=== PATIENT | female | born 1990 | race Caucasian/White ===

== ENCOUNTER 2017-09-13 23:05 | Inpatient (IN) | payer MEDICAID ==
[2017-09-14 01:03] LABS: RUPTURE FETAL MEMBRANES NEGATIVE (NEGATIVE)
[2017-09-14] MEDS ORDERED: OXYCODONE/ASPIRIN (4.88/325) TAB PO (01:30)
[2017-09-14] MEDS ORDERED: LIDOCAINE 1% (MPF) 30 ML INJ INJ (01:30)
[2017-09-14] MEDS ORDERED: METHYLERGONOVINE 0.2 MG INJ IM (01:30)
[2017-09-14] MEDS ORDERED: MISOPROSTOL 200 MCG TAB PR (01:30)
[2017-09-14] MEDS ORDERED: IBUPROFEN 600 MG TAB PO (01:30)
[2017-09-14] MEDS ORDERED: BUTORPHANOL 2 MG INJ IV ×2 (01:30)
[2017-09-14] MEDS ORDERED: CARBOPROST 250 MCG INJ IM (01:30)
[2017-09-14] MEDS ORDERED: OXYTOCIN 30 UNITS/LR 500 ML IV ×3 (01:30)
[2017-09-14] MEDS: LACTATED RINGER'S 1,000 ML IV ×4 (01:59→23:49)
[2017-09-14 02:22] LABS: ADD MAN DIFF? NO; BASOPHILS % 0.5 % (0.0-2.0); EOSINOPHILS # 0.3 10^3/ul (0.0-0.5); HEMATOCRIT 32.1 % (37.0-47.0); HEMOGLOBIN 11.3 g/dl (12.0-16.0); LYMPHOCYTES # 2.3 10^3/ul (0.8-2.9); LYMPHOCYTES % 27.1 % (15.0-51.0); MEAN CORPUSCULAR HEMOGLOBIN 31.9 pg (29.0-33.0); MEAN CORPUSCULAR HGB CONC 35.2 g/dl (32.0-37.0); MEAN CORPUSCULAR VOLUME 90.7 fl (82.0-101.0); MEAN PLATELET VOLUME 10.9 fl (7.4-10.4); MONOCYTE # 0.4 10^3/ul (0.3-0.9); MONOCYTES % 5.3 % (0.0-11.0); NEUTROPHIL # 5.2 10^3/ul (1.6-7.5); NEUTROPHILS % 61.9 % (39.0-77.0); PLATELET COUNT 183 10^3/UL (140-415); RED BLOOD COUNT 3.54 10^6/ul (4.20-5.40); RED CELL DISTRIBUTION WIDTH 13.1 % (11.5-14.5)
[2017-09-14 02:22] LABS: WHITE BLOOD COUNT 8.3 10^3/ul (4.8-10.8)
[2017-09-14 02:41] LABS: INR 0.88; PT RATIO 0.9
[2017-09-14 02:42] LABS: PARTIAL THROMBOPLASTIN TIME 28.1 Sec (25.0-35.0)
[2017-09-14 03:14] LABS: HEPATITIS B SURFACE ANTIGEN NEGATIVE (NEGATIVE)
[2017-09-14] MEDS: DINOPROSTONE 10 MG VAG SUPP VAG (03:26)
[2017-09-14 15:08] LABS: RAPID PLASMA REAGIN NONREACTIVE (NR)
[2017-09-14] MEDS: OXYTOCIN 30 UNITS/LR 500 ML IV (19:49)
[2017-09-15] MEDS: LACTATED RINGER'S 1,000 ML IV (05:42)
[2017-09-15] MEDS ORDERED: CEFAZOLIN 2 GM/50 ML (PMX) 50 ML IVPB (06:30)
== END 2017-09-15 15:33 | disposition home or self-care (01) | DRG 780 ==
LOC: OBT 23:05 → L-D 23:06
PROVIDERS: Obstetrics & Gynecology
DX: O47.1 False labor at or after 37 completed weeks of gestation (principal); Z3A.38 38 weeks gestation of pregnancy
CPT/HCPCS: 36415; 76815; 76818; 84112; 85025; 85610; 85730; 86592; 86850; 86900; 86901; 87340

== ENCOUNTER 2017-09-18 11:55 | Outpatient (CLI) | payer MEDICAID | END 2017-09-18 13:15 | disposition home or self-care (01) | LOC: OBT 11:55 → L-D 11:58 → OBT 13:15 | DX: O26.893 Other specified pregnancy related conditions, third trimester (principal); Z3A.38 38 weeks gestation of pregnancy | CPT/HCPCS: 76818 ==

== ENCOUNTER 2017-09-22 10:53 | Outpatient (CLI) | payer MEDICAID | END 2017-09-22 13:50 | disposition home or self-care (01) | LOC: OBT 10:53 → L-D 10:54 → OBT 13:50 | DX: O62.9 Abnormality of forces of labor, unspecified (principal); Z3A.39 39 weeks gestation of pregnancy | CPT/HCPCS: 76818 ==

== ENCOUNTER 2017-09-23 20:14 | Inpatient (IN) | payer MEDICAID ==
[2017-09-23] MEDS: LACTATED RINGER'S 1,000 ML IV (20:29)
[2017-09-23] MEDS ORDERED: CARBOPROST 250 MCG INJ IM (20:30)
[2017-09-23] MEDS ORDERED: METHYLERGONOVINE 0.2 MG INJ IM (20:30)
[2017-09-23] MEDS ORDERED: BUTORPHANOL 2 MG INJ IV (20:30)
[2017-09-23] MEDS ORDERED: MISOPROSTOL 200 MCG TAB PR (20:30)
[2017-09-23] MEDS ORDERED: LIDOCAINE 1% (MPF) 30 ML INJ INJ (20:30)
[2017-09-23] MEDS ORDERED: OXYTOCIN 30 UNITS/LR 500 ML IV (20:30)
[2017-09-23 21:15] LABS: ADD MAN DIFF? NO
[2017-09-23 21:18] LABS: WHITE BLOOD COUNT 13.9 10^3/ul (4.8-10.8)
[2017-09-23 21:18] LABS: BASOPHILS % 0.3 % (0.0-2.0); EOSINOPHILS # 0.4 10^3/ul (0.0-0.5); EOSINOPHILS % 2.5 % (0.0-7.0); HEMATOCRIT 35.2 % (37.0-47.0); HEMOGLOBIN 12.5 g/dl (12.0-16.0); LYMPHOCYTES # 1.8 10^3/ul (0.8-2.9); LYMPHOCYTES % 12.8 % (15.0-51.0); MEAN CORPUSCULAR HGB CONC 35.5 g/dl (32.0-37.0); MEAN PLATELET VOLUME 11.1 fl (7.4-10.4); MONOCYTE # 0.6 10^3/ul (0.3-0.9); MONOCYTES % 4.3 % (0.0-11.0); NEUTROPHILS % 79.4 % (39.0-77.0); PLATELET COUNT 205 10^3/UL (140-415); RED BLOOD COUNT 3.91 10^6/ul (4.20-5.40); RED CELL DISTRIBUTION WIDTH 13.1 % (11.5-14.5)
[2017-09-23] MEDS: AMPICILLIN 2 GM/NS (PMX) 100 ML IVPB (21:23)
[2017-09-23] MEDS ORDERED: AMPICILLIN 2 GM/NS (PMX) 100 ML (21:24)
[2017-09-23 21:40] LABS: PROTIME 12.2 Sec (11.9-14.9)
[2017-09-23 21:41] LABS: PARTIAL THROMBOPLASTIN TIME 30.6 Sec (25.0-35.0)
[2017-09-23 22:08] LABS: HEPATITIS B SURFACE ANTIGEN NEGATIVE (NEGATIVE)
[2017-09-23] MEDS: OXYTOCIN 30 UNITS/LR 500 ML IV ×2 (22:14→23:00)
[2017-09-23] MEDS: IBUPROFEN 600 MG TAB PO (22:45)
[2017-09-24] MEDS ORDERED: AMPICILLIN 1 GM/NS (PMX) 50 ML IVPB (01:00)
[2017-09-24] MEDS ORDERED: BENZOCAINE 20% 56 ML SPRAY TOP (01:30)
[2017-09-24] MEDS ORDERED: OXYCODONE/ASPIRIN (4.88/325) TAB PO (01:30)
[2017-09-24] MEDS ORDERED: OXYTOCIN 30 UNITS/LR 500 ML IV (01:30)
[2017-09-24] MEDS ORDERED: ZOLPIDEM 5 MG TAB PO (01:30)
[2017-09-24] MEDS ORDERED: MISOPROSTOL 200 MCG TAB PR (01:30)
[2017-09-24] MEDS ORDERED: METHYLERGONOVINE 0.2 MG INJ IM (01:30)
[2017-09-24] MEDS ORDERED: WITCH HAZEL/GLYCERIN PAD PR (01:30)
[2017-09-24] MEDS ORDERED: LANOLIN 7 GM TUBE TOP (01:30)
[2017-09-24] MEDS ORDERED: CARBOPROST 250 MCG INJ IM (01:30)
[2017-09-24] MEDS: IBUPROFEN 600 MG TAB PO ×4 (05:52→23:26)
[2017-09-24] MEDS ORDERED: CEFAZOLIN 1 GM INJ (07:00)
[2017-09-24 08:26] LABS: ADD MAN DIFF? NO
[2017-09-24 08:32] LABS: WHITE BLOOD COUNT 19.1 10^3/ul (4.8-10.8)
[2017-09-24 08:32] LABS: BASOPHIL # 0.1 10^3/ul (0.0-0.1); BASOPHILS % 0.3 % (0.0-2.0); EOSINOPHILS # 0.2 10^3/ul (0.0-0.5); EOSINOPHILS % 0.9 % (0.0-7.0); HEMATOCRIT 31.3 % (37.0-47.0); HEMOGLOBIN 11.1 g/dl (12.0-16.0); LYMPHOCYTES # 2.4 10^3/ul (0.8-2.9); LYMPHOCYTES % 12.3 % (15.0-51.0); MEAN CORPUSCULAR HEMOGLOBIN 31.7 pg (29.0-33.0); MEAN CORPUSCULAR HGB CONC 35.5 g/dl (32.0-37.0); MEAN CORPUSCULAR VOLUME 89.4 fl (82.0-101.0); MEAN PLATELET VOLUME 10.9 fl (7.4-10.4); MONOCYTE # 0.8 10^3/ul (0.3-0.9); MONOCYTES % 4.3 % (0.0-11.0); NEUTROPHIL # 15.6 10^3/ul (1.6-7.5); NEUTROPHILS % 81.3 % (39.0-77.0); PLATELET COUNT 212 10^3/UL (140-415); RED CELL DISTRIBUTION WIDTH 13.2 % (11.5-14.5)
[2017-09-24] MEDS: SENNA/DOCUSATE NA (8.6MG/50MG) TAB PO ×2 (09:00→21:56)
[2017-09-24] MEDS ORDERED: FENTAnyl 50 MCG/ML VIAL (11:53)
[2017-09-24] MEDS ORDERED: BUPIVACAINE 0.75%/DEXT (SPINAL) 2 ML INJ (11:53)
[2017-09-24] MEDS ORDERED: MIDAZOLAM 1 MG/ML 2 ML INJ ×2 (11:57→12:26)
[2017-09-24] MEDS ORDERED: OXYCODONE/ACETAMINOPHEN (5/325) TAB PO ×2 (12:30)
[2017-09-24] MEDS ORDERED: DIPHENHYDRAMINE 50 MG INJ IV (12:30)
[2017-09-24] MEDS ORDERED: hydrALAzine 20 MG INJ IV (12:30)
[2017-09-24] MEDS ORDERED: MEPERIDINE 25 MG INJ IV (12:30)
[2017-09-24] MEDS ORDERED: EPHEDrine SULFATE 50 MG/5 ML SYG IV (12:30)
[2017-09-24] MEDS ORDERED: METOCLOPRAMIDE 10 MG INJ IV (12:30)
[2017-09-24] MEDS ORDERED: KETOROLAC 30 MG INJ IV (12:30)
[2017-09-24] MEDS ORDERED: LABETALOL HCL 20MG INJ IV (12:30)
[2017-09-24] MEDS ORDERED: FENTAnyl 50 MCG/ML VIAL IV ×3 (12:30)
[2017-09-24] MEDS ORDERED: HYDROmorphONE (0.2 MG/ML) 10ML SYG IV ×3 (12:30)
[2017-09-24] MEDS ORDERED: ONDANSETRON 4 MG INJ IV (12:30)
[2017-09-24] MEDS ORDERED: MIDAZOLAM 1 MG/ML 2 ML INJ IV (12:30)
[2017-09-24 15:50] LABS: RAPID PLASMA REAGIN NONREACTIVE (NR)
[2017-09-24] MEDS: OXYCODONE/ASPIRIN (4.88/325) TAB PO (17:09)
[2017-09-25] MEDS: IBUPROFEN 600 MG TAB PO (06:10)
[2017-09-25 08:24] LABS: ADD MAN DIFF? NO
[2017-09-25 08:29] LABS: BASOPHILS % 0.3 % (0.0-2.0); EOSINOPHILS # 0.5 10^3/ul (0.0-0.5); EOSINOPHILS % 4.5 % (0.0-7.0); HEMATOCRIT 31.1 % (37.0-47.0); HEMOGLOBIN 10.7 g/dl (12.0-16.0); LYMPHOCYTES # 2.3 10^3/ul (0.8-2.9); LYMPHOCYTES % 19.9 % (15.0-51.0); MEAN CORPUSCULAR HGB CONC 34.4 g/dl (32.0-37.0); MEAN CORPUSCULAR VOLUME 93.1 fl (82.0-101.0); MEAN PLATELET VOLUME 10.9 fl (7.4-10.4); MONOCYTE # 0.5 10^3/ul (0.3-0.9); MONOCYTES % 4.6 % (0.0-11.0); NEUTROPHIL # 8.1 10^3/ul (1.6-7.5); NEUTROPHILS % 69.9 % (39.0-77.0); PLATELET COUNT 184 10^3/UL (140-415); RED BLOOD COUNT 3.34 10^6/ul (4.20-5.40); RED CELL DISTRIBUTION WIDTH 13.4 % (11.5-14.5)
[2017-09-25 08:29] LABS: WHITE BLOOD COUNT 11.6 10^3/ul (4.8-10.8)
[2017-09-25] MEDS ORDERED: DIPHTH/TET/ACEL PERTUSS (ADULT) 0.5 ML VIAL IM* (09:00)
[2017-09-25] MEDS: SENNA/DOCUSATE NA (8.6MG/50MG) TAB PO (09:00)
== END 2017-09-25 14:10 | disposition home or self-care (01) | DRG 767 ==
LOC: OBT 20:14 → PP1 09-24 01:25 → L-D 20:15 → OBT 20:31 → L-D 20:30
PROVIDERS: Obstetrics & Gynecology
PROC: 0UB70ZZ Excision of Bilateral Fallopian Tubes, Open Approach (ICD-10-PCS; 2017-09-24 12:00)
PROC: 10E0XZZ Delivery of Products of Conception, External Approach (ICD-10-PCS; principal; 2017-09-24 12:08)
DX: O80 Encounter for full-term uncomplicated delivery (principal); Z3A.39 39 weeks gestation of pregnancy; Z37.0 Single live birth; Z30.2 Encounter for sterilization
CPT/HCPCS: 85025; 85610; 85730; 86592; 86850; 86900; 86901; 87340; 88302